=== PATIENT | female | born 1940 | race African-American/Black ===

== ENCOUNTER 2021-07-12 13:20 | Observation (INO) | payer MEDICARE, MEDICAID ==
[2021-07-12 14:39] LABS: #Eosinphils 0.3 10x3/uL (0.0-0.5); #Neutrophils 7.3 10x3/uL (1.5-8.4); %Basophils 0.3 % (0.0-2.0); %Eosinophils 2.9 % (0.0-6.0); %Lymphocytes 8.4 % (18.0-47.0); %Monocytes 10.7 % (0.0-10.0); %Neutrophils 77.1 % (40.0-75.0); Mean Corpuscular HGB CONC 33.2 g/dL (32.0-36.0); Mean Corpuscular Hemoglobin 32.1 pg (27.0-33.0); Mean Corpuscular Volume 96.5 fl (81.6-98.3); Mean Platelet Volume 10.7 fl (7.4-10.4); Platelet Count 236 10x3/uL (150-450); RBC Distribution Width 13.7 % (11.5-14.5); Red Blood Cell (RBC) Count 3.12 10x6/uL (3.90-5.03); White Blood Cell (WBC) Count 9.4 10x3/uL (3.5-10.5)
[2021-07-12 15:14] LABS: SARS-CoV-2 NAA Rapid Test Not Detected (NotDetected)
[2021-07-12 15:40] LABS: ALT (SGPT) 7 U/L (8-55); AST (SGOT) 16 U/L (5-34); Albumin 3.6 g/dL (3.4-4.8); Alkaline Phosphatase 147 U/L (40-110); Anion Gap 19 mmol/L (10-20); BUN (Urea Nitrogen) 40 mg/dL (9.8-20.1); Bilirubin, Total 0.4 mg/dL (0.2-1.2); Calc. Creatinine Clearance 0 mL/min (70-130); Calcium 9.2 mg/dL (7.8-10.44); Carbon Dioxide 25 mmol/L (23-31); Chloride 96 mmol/L (98-107); Globulin 3.1 g/dL (2.4-3.5); Glucose 110 mg/dL (83-110); Potassium 4.5 mmol/L (3.5-5.1); Protein, Total 6.7 g/dL (5.8-8.1); Sodium 135 mmol/L (136-145)
[2021-07-12 15:58] LABS: CKMB 1.4 ng/mL (0-6.6)
[2021-07-12 17:57] LABS: Troponin I 0.048 ng/mL (< 0.028)
[2021-07-12] MEDS ORDERED: Nitroglycerin 0.4 MG TAB (25 Tab Bottle) SL PRN (19:38)
[2021-07-12] MEDS ORDERED: Aspirin 325 MG TAB PO SCH (19:45)
[2021-07-12 21:04] LABS: Troponin I 0.051 ng/mL (< 0.028)
[2021-07-12 23:40] VITALS: BMI 22.3
[2021-07-12] MEDS: Heparin 5,000 UNITS/ML VIAL SC SCH (23:53)
[2021-07-13] MEDS ORDERED: Acetaminophen 500 MG TAB PO SCH (02:00)
[2021-07-13] MEDS ORDERED: FLU VACC QS2021-22(65YR UP)/PF 240 MCG/0.7 ML SYRINGE IM ONE (02:15)
[2021-07-13 04:58] LABS: #Eosinphils 0.3 10x3/uL (0.0-0.5); #Neutrophils 6.3 10x3/uL (1.5-8.4); %Basophils 0.4 % (0.0-2.0); %Eosinophils 3.7 % (0.0-6.0); %Lymphocytes 8.1 % (18.0-47.0); %Monocytes 11.8 % (0.0-10.0); %Neutrophils 75.6 % (40.0-75.0); Mean Corpuscular HGB CONC 32.8 g/dL (32.0-36.0); Mean Corpuscular Hemoglobin 31.7 pg (27.0-33.0); Mean Corpuscular Volume 96.5 fl (81.6-98.3); Mean Platelet Volume 9.1 fl (7.4-10.4); Platelet Count 219 10x3/uL (150-450); RBC Distribution Width 13.7 % (11.5-14.5); Red Blood Cell (RBC) Count 2.84 10x6/uL (3.90-5.03); White Blood Cell (WBC) Count 8.4 10x3/uL (3.5-10.5)
[2021-07-13 05:10] LABS: Anion Gap 13 mmol/L (10-20); BUN (Urea Nitrogen) 19 mg/dL (9.8-20.1); Calc. Creatinine Clearance 9 mL/min (70-130); Calcium 9.2 mg/dL (7.8-10.44); Carbon Dioxide 29 mmol/L (23-31); Chloride 100 mmol/L (98-107); Glucose 87 mg/dL (83-110); Phosphorus 3.5 mg/dL (2.3-4.7); Potassium 3.9 mmol/L (3.5-5.1); Sodium 138 mmol/L (136-145)
[2021-07-13] MEDS ORDERED: Acetaminophen 325 MG TAB PO PRN (08:30)
[2021-07-13] MEDS ORDERED: traMADol HCl 50 MG TAB PO PRN (08:31)
[2021-07-13] MEDS ORDERED: Levothyroxine Sodium 125 MCG TAB PO SCH (08:45)
[2021-07-13] MEDS ORDERED: cloNIDine 0.1 MG TAB PO SCH (09:00)
[2021-07-13] MEDS ORDERED: NIFEdipine XL 60 MG TAB PO SCH (09:00)
[2021-07-13] MEDS ORDERED: Aspirin Chewable 81 MG TAB PO SCH (09:00)
[2021-07-13] MEDS ORDERED: hydrALAZINE 25 MG TAB PO SCH (09:00)
[2021-07-13] MEDS ORDERED: Minoxidil 2.5 MG TAB PO SCH (09:00)
[2021-07-13] MEDS ORDERED: Lisinopril 20 MG TAB PO SCH (09:00)
[2021-07-13] MEDS ORDERED: traZODone HCl 50 MG TAB PO SCH (09:00)
[2021-07-13] MEDS: Heparin 5,000 UNITS/ML VIAL SC SCH (10:09)
[2021-07-13] MEDS ORDERED: Heparin 10,000 UNITS/ 10 ML VIAL FS SCH (10:45)
[2021-07-13] MEDS ORDERED: EPOETIN ALFA-EPBX (ESRD) 3,000 UNIT/ML VIAL IVP SCH (10:45)
[2021-07-13 12:26] VITALS: BP 155/66; TEMP 98.3
[2021-07-13] MEDS ORDERED: Atorvastatin Calcium 10 MG TAB PO SCH (21:00)
[2021-07-14] MEDS ORDERED: Levothyroxine Sodium 125 MCG TAB PO SCH (06:00)
== END 2021-07-13 16:27 | disposition home or self-care (01) ==
LOC: CSHERS 13:20 → CSHTELE 13:21
PROVIDERS: ADMIT Family Medicine; ATTEND Internal Medicine
DX: R07.89 Other chest pain (principal); R06.02 Shortness of breath; E87.70 Fluid overload, unspecified; E11.22 Type 2 diabetes mellitus with diabetic chronic kidney disease; I12.0 Hypertensive chronic kidney disease with stage 5 chronic kidney disease or end stage renal disease; N18.6 End stage renal disease; I51.89 Other ill-defined heart diseases; I25.10 Atherosclerotic heart disease of native coronary artery without angina pectoris; E78.5 Hyperlipidemia, unspecified; Z86.73 Personal history of transient ischemic attack (TIA), and cerebral infarction without residual deficits; Z79.899 Other long term (current) drug therapy; E03.9 Hypothyroidism, unspecified; Z20.822 Contact with and (suspected) exposure to COVID-19
CPT/HCPCS: 0241U; 71045; 80048; 80053; 82553; 82962; 83735; 84100; 84484 ×2; 85025 ×2; 93005 ×2; 93306; 94760; 99285; G0378 ×3; 36415; 36416; 90935; 93010; G0257; J1644

== ENCOUNTER 2021-09-10 03:45 | Inpatient (IN) | payer MEDICARE, MEDICAID ==
[2021-09-10] MEDS ORDERED: Labetalol HCl 100 MG/20 ML VIAL ONE (03:59)
[2021-09-10 04:19] LABS: #Basophils 0.1 10x3/uL (0.0-0.2); #Eosinphils 0.2 10x3/uL (0.0-0.5); #Monocytes 1.3 10x3/uL (0.0-1.1); #Neutrophils 9.4 10x3/uL (1.5-8.4); %Basophils 0.8 % (0.0-2.0); %Eosinophils 1.5 % (0.0-6.0); %Lymphocytes 7.8 % (18.0-47.0); %Monocytes 10.9 % (0.0-10.0); %Neutrophils 78.6 % (40.0-75.0); Mean Corpuscular HGB CONC 32.8 g/dL (32.0-36.0); Mean Corpuscular Hemoglobin 31.3 pg (27.0-33.0); Mean Corpuscular Volume 95.6 fl (81.6-98.3); Mean Platelet Volume 9.3 fl (7.4-10.4); Platelet Count 315 10x3/uL (150-450); RBC Distribution Width 13.3 % (11.5-14.5); Red Blood Cell (RBC) Count 3.83 10x6/uL (3.90-5.03)
[2021-09-10 04:39] LABS: ALT (SGPT) 10 U/L (8-55); AST (SGOT) 20 U/L (5-34); Albumin 4.3 g/dL (3.4-4.8); Alkaline Phosphatase 174 U/L (40-110); Anion Gap 18 mmol/L (10-20); BUN (Urea Nitrogen) 40 mg/dL (9.8-20.1); Bilirubin, Total 0.6 mg/dL (0.2-1.2); Calc. Creatinine Clearance 0 mL/min (70-130); Calcium 10.5 mg/dL (7.8-10.44); Carbon Dioxide 28 mmol/L (23-31); Chloride 94 mmol/L (98-107); Globulin 3.6 g/dL (2.4-3.5); Glucose 99 mg/dL (83-110); Potassium 4.6 mmol/L (3.5-5.1); Protein, Total 7.9 g/dL (5.8-8.1); Sodium 135 mmol/L (136-145)
[2021-09-10 04:57] LABS: CKMB 1.7 ng/mL (0-6.6)
[2021-09-10] MEDS ORDERED: hydrALAZINE 20 MG/ML VIAL ONE (05:14)
[2021-09-10 08:33] LABS: Troponin I 0.233 ng/mL (< 0.028)
[2021-09-10] MEDS: Famotidine 20 MG TAB PO SCH (08:59)
[2021-09-10] MEDS: Acetaminophen 325 MG TAB PO PRN ×2 (08:59→14:46)
[2021-09-10] MEDS: Heparin 5,000 UNITS/ML VIAL SC SCH ×3 (09:00→20:46)
[2021-09-10] MEDS ORDERED: Albuterol Sulfate 2.5 mg/3 ml Neb NEB PRN (10:27)
[2021-09-10] MEDS ORDERED: Levothyroxine Sodium 125 MCG TAB PO SCH ×2 (10:30→15:00)
[2021-09-10] MEDS: Ipratropium Bromide 2.5 ml Neb NEB SCH ×2 (12:29→18:45)
[2021-09-10] MEDS: Sevelamer Carbonate 800 MG TAB PO SCH ×2 (14:46→16:30)
[2021-09-10] MEDS: hydrALAZINE 25 MG TAB PO SCH ×3 (14:46→20:45)
[2021-09-10] MEDS ORDERED: HYDROcodone/Acetaminophen 10/325 mg Tablet PO SCH (16:30)
[2021-09-10] MEDS: Carvedilol 25 MG TAB PO SCH (16:30)
[2021-09-10 16:49] LABS: SARS-CoV-2 PCR by NAA Not Detected (NotDetected)
[2021-09-10] MEDS ORDERED: Heparin 10,000 UNITS/ 10 ML VIAL SLOW IVP PRN (17:07)
[2021-09-10] MEDS: Lisinopril 20 MG TAB PO SCH (20:44)
[2021-09-10] MEDS: NIFEdipine XL 60 MG TAB PO SCH (20:44)
[2021-09-10] MEDS: Atorvastatin Calcium 10 MG TAB PO SCH (20:45)
[2021-09-10] MEDS: cloNIDine 0.1 MG TAB PO SCH (20:45)
[2021-09-10] MEDS ORDERED: Simethicone Chewable 80 MG TAB PO SCH (21:00)
[2021-09-11] MEDS ORDERED: HYDROcodone/Acetaminophen 5/325 mg Tablet PO SCH (00:30)
[2021-09-11] MEDS: cloNIDine 0.1 MG TAB PO SCH ×3 (00:32→22:21)
[2021-09-11] MEDS: Ipratropium Bromide 2.5 ml Neb NEB SCH ×4 (01:35→19:40)
[2021-09-11 03:38] LABS: #Basophils 0.1 10x3/uL (0.0-0.2); #Eosinphils 0.2 10x3/uL (0.0-0.5); #Monocytes 1.5 10x3/uL (0.0-1.1); #Neutrophils 7.6 10x3/uL (1.5-8.4); %Basophils 0.6 % (0.0-2.0); %Eosinophils 1.8 % (0.0-6.0); %Lymphocytes 9.5 % (18.0-47.0); %Monocytes 14.8 % (0.0-10.0); %Neutrophils 72.9 % (40.0-75.0); Hemoglobin 10.8 g/dL (12.0-15.5); Mean Corpuscular HGB CONC 33.4 g/dL (32.0-36.0); Mean Corpuscular Hemoglobin 31.7 pg (27.0-33.0); Mean Corpuscular Volume 94.7 fl (81.6-98.3); Mean Platelet Volume 9.4 fl (7.4-10.4); Platelet Count 305 10x3/uL (150-450); RBC Distribution Width 13.3 % (11.5-14.5); Red Blood Cell (RBC) Count 3.41 10x6/uL (3.90-5.03); White Blood Cell (WBC) Count 10.4 10x3/uL (3.5-10.5)
[2021-09-11 03:51] LABS: Anion Gap 18 mmol/L (10-20); BUN (Urea Nitrogen) 28 mg/dL (9.8-20.1); Calc. Creatinine Clearance 8 mL/min (70-130); Calcium 9.8 mg/dL (7.8-10.44); Carbon Dioxide 27 mmol/L (23-31); Chloride 92 mmol/L (98-107); Glucose 117 mg/dL (83-110); Potassium 4.2 mmol/L (3.5-5.1); Sodium 133 mmol/L (136-145)
[2021-09-11] MEDS: Levothyroxine Sodium 125 MCG TAB PO SCH (06:15)
[2021-09-11] MEDS: Famotidine 20 MG TAB PO SCH (08:28)
[2021-09-11] MEDS: Heparin 5,000 UNITS/ML VIAL SC SCH ×3 (08:28→22:22)
[2021-09-11] MEDS: Carvedilol 25 MG TAB PO SCH ×2 (08:28→15:57)
[2021-09-11] MEDS: Lisinopril 20 MG TAB PO SCH ×2 (08:28→22:21)
[2021-09-11] MEDS: hydrALAZINE 25 MG TAB PO SCH ×4 (08:28→22:20)
[2021-09-11] MEDS: NIFEdipine XL 60 MG TAB PO SCH ×2 (08:28→22:20)
[2021-09-11] MEDS: Sevelamer Carbonate 800 MG TAB PO SCH ×3 (08:29→15:58)
[2021-09-11] MEDS: Minoxidil 2.5 MG TAB PO SCH (08:29)
[2021-09-11 09:18] VITALS: BMI 20.6
[2021-09-11] MEDS: Acetaminophen 325 MG TAB PO PRN (15:57)
[2021-09-11] MEDS: Atorvastatin Calcium 10 MG TAB PO SCH (22:21)
[2021-09-12] MEDS: Ipratropium Bromide 2.5 ml Neb NEB SCH ×3 (01:30→15:00)
[2021-09-12 04:18] LABS: Anion Gap 18 mmol/L (10-20); BUN (Urea Nitrogen) 46 mg/dL (9.8-20.1); Calc. Creatinine Clearance 6 mL/min (70-130); Calcium 9.8 mg/dL (7.8-10.44); Carbon Dioxide 27 mmol/L (23-31); Chloride 92 mmol/L (98-107); Glucose 102 mg/dL (83-110); Potassium 4.5 mmol/L (3.5-5.1); Sodium 132 mmol/L (136-145)
[2021-09-12 04:53] LABS: #Basophils 0.1 10x3/uL (0.0-0.2); #Eosinphils 0.2 10x3/uL (0.0-0.5); #Monocytes 1.3 10x3/uL (0.0-1.1); #Neutrophils 6.6 10x3/uL (1.5-8.4); %Basophils 0.8 % (0.0-2.0); %Eosinophils 2.4 % (0.0-6.0); %Lymphocytes 13.7 % (18.0-47.0); %Monocytes 13.7 % (0.0-10.0); %Neutrophils 68.9 % (40.0-75.0); Hemoglobin 9.5 g/dL (12.0-15.5); Mean Corpuscular HGB CONC 32.8 g/dL (32.0-36.0); Mean Corpuscular Hemoglobin 31.7 pg (27.0-33.0); Mean Corpuscular Volume 96.7 fl (81.6-98.3); Mean Platelet Volume 9.8 fl (7.4-10.4); Platelet Count 290 10x3/uL (150-450); RBC Distribution Width 13.3 % (11.5-14.5); White Blood Cell (WBC) Count 9.6 10x3/uL (3.5-10.5)
[2021-09-12] MEDS: cloNIDine 0.1 MG TAB PO SCH ×2 (08:19→09:01)
[2021-09-12] MEDS: Minoxidil 2.5 MG TAB PO SCH (09:01)
[2021-09-12] MEDS: Carvedilol 25 MG TAB PO SCH (09:01)
[2021-09-12] MEDS: Heparin 5,000 UNITS/ML VIAL SC SCH ×2 (09:01→13:40)
[2021-09-12] MEDS: NIFEdipine XL 60 MG TAB PO SCH (09:01)
[2021-09-12] MEDS: Lisinopril 20 MG TAB PO SCH (09:02)
[2021-09-12] MEDS: Levothyroxine Sodium 125 MCG TAB PO SCH (09:02)
[2021-09-12] MEDS: Sevelamer Carbonate 800 MG TAB PO SCH ×2 (09:02→13:40)
[2021-09-12] MEDS: Famotidine 20 MG TAB PO SCH (09:02)
[2021-09-12] MEDS: hydrALAZINE 25 MG TAB PO SCH ×2 (09:02→13:39)
[2021-09-12 16:06] VITALS: BP 150/67; TEMP 97.1
== END 2021-09-12 17:43 | disposition home or self-care (01) | DRG 291 ==
LOC: CSHERS 03:45 → CSHTELE 06:59
PROVIDERS: ADMIT Internal Medicine; ATTEND Hospitalist
PROC: 5A1D70Z Performance of Urinary Filtration, Intermittent, Less than 6 Hours Per Day (ICD-10-PCS; principal; 2021-09-10)
PROC: 5A1D70Z Performance of Urinary Filtration, Intermittent, Less than 6 Hours Per Day (ICD-10-PCS; 2021-09-12)
DX: I13.2 Hypertensive heart and chronic kidney disease with heart failure and with stage 5 chronic kidney disease, or end stage renal disease (principal); N18.6 End stage renal disease; J96.01 Acute respiratory failure with hypoxia; I50.33 Acute on chronic diastolic (congestive) heart failure; I16.1 Hypertensive emergency; I16.0 Hypertensive urgency; E11.22 Type 2 diabetes mellitus with diabetic chronic kidney disease; E03.9 Hypothyroidism, unspecified; I25.10 Atherosclerotic heart disease of native coronary artery without angina pectoris; J44.9 Chronic obstructive pulmonary disease, unspecified; D63.1 Anemia in chronic kidney disease; F41.9 Anxiety disorder, unspecified; F32.A Depression, unspecified; Z20.822 Contact with and (suspected) exposure to COVID-19; Z86.73 Personal history of transient ischemic attack (TIA), and cerebral infarction without residual deficits; Z90.49 Acquired absence of other specified parts of digestive tract; Z98.890 Other specified postprocedural states; Z87.891 Personal history of nicotine dependence; Z88.1 Allergy status to other antibiotic agents; Z88.8 Allergy status to other drugs, medicaments and biological substances; Z86.16 Personal history of COVID-19; Z88.2 Allergy status to sulfonamides; Z79.899 Other long term (current) drug therapy; Z99.2 Dependence on renal dialysis; Z79.51 Long term (current) use of inhaled steroids; Z90.710 Acquired absence of both cervix and uterus; Z91.15 Patient's noncompliance with renal dialysis
CPT/HCPCS: 36415; 36416; 71045; 80048; 80053; 82553; 83880; 84484; 85025; 90935; 93005; 94760; 96374; 96375; G0257; J0360; J1644; U0003; U0005

== ENCOUNTER 2021-09-17 11:06 | Emergency (ER) | payer MEDICARE, MEDICAID ==
[2021-09-17] MEDS ORDERED: HYDROcodone/Acetaminophen 10/325 mg Tablet ONE (11:51)
== END 2021-09-17 13:58 | disposition home or self-care (01) ==
LOC: CSHERS 11:06
DX: T82.848A Pain due to vascular prosthetic devices, implants and grafts, initial encounter (principal); I12.0 Hypertensive chronic kidney disease with stage 5 chronic kidney disease or end stage renal disease; E11.22 Type 2 diabetes mellitus with diabetic chronic kidney disease; N18.6 End stage renal disease; I25.10 Atherosclerotic heart disease of native coronary artery without angina pectoris; Z86.73 Personal history of transient ischemic attack (TIA), and cerebral infarction without residual deficits; Z99.2 Dependence on renal dialysis; Z87.891 Personal history of nicotine dependence
CPT/HCPCS: 93931

== ENCOUNTER 2021-10-27 06:03 | Inpatient (IN) | payer MEDICARE, MEDICAID ==
[2021-10-27] MEDS ORDERED: Dexmedetomidine In 0.9 % NaCl 400 MCG in Premix Bag 1 BAG IVPB SCH (06:45)
[2021-10-27 06:52] LABS: Actual Bicarbonate (HCO3a) 21.9 mEq/L (22-28); Base Excess (BEa) -2.9 mEq/L (-2.0 to +3.0); CO2 Tension 38.1 mmHg (35.0-45.0); Calcium, Ionized (arterial) 1.14 mmol/L (1.12-1.30); Carboxyhemoglobin (COHb) 2.1 gm% (0.0-3.0); Hemoglobin (Hb) 10.9 g/dL (12.0-16.0); Potassium - ABG Lab 5.5 mmol/L (3.70-5.30); Puncture Site RRA; pH, Arterial 7.38 (7.35-7.45)
[2021-10-27 06:53] LABS: ALV-art Gradient 201.175 mmHg (0-20)
[2021-10-27 06:53] LABS: #Basophils 0.1 10x3/uL (0.0-0.2); #Eosinphils 0.4 10x3/uL (0.0-0.5); #Neutrophils 11.2 10x3/uL (1.5-8.4); %Basophils 0.7 % (0.0-2.0); %Eosinophils 2.9 % (0.0-6.0); %Monocytes 6.9 % (0.0-10.0); %Neutrophils 78.5 % (40.0-75.0); Mean Corpuscular HGB CONC 33.4 g/dL (32.0-36.0); Mean Corpuscular Volume 95.6 fl (81.6-98.3); Mean Platelet Volume 9.6 fl (7.4-10.4); Platelet Count 262 10x3/uL (150-450); RBC Distribution Width 12.2 % (11.5-14.5); Red Blood Cell (RBC) Count 3.44 10x6/uL (3.90-5.03); White Blood Cell (WBC) Count 14.3 10x3/uL (3.5-10.5)
[2021-10-27 06:57] LABS: PTT 25.6 sec (22.0-33.0); Prothrombin Time 11.1 sec (9.5-12.1)
[2021-10-27 07:23] LABS: CKMB 2.2 ng/mL (0-6.6)
[2021-10-27 07:27] LABS: ALT (SGPT) 32 U/L (8-55); AST (SGOT) 55 U/L (5-34); Albumin 3.6 g/dL (3.4-4.8); Alkaline Phosphatase 103 U/L (40-110); Anion Gap 23 mmol/L (10-20); BUN (Urea Nitrogen) 45 mg/dL (9.8-20.1); Bilirubin, Total 0.5 mg/dL (0.2-1.2); Calc. Creatinine Clearance 0 mL/min (70-130); Calcium 9.6 mg/dL (7.8-10.44); Carbon Dioxide 21 mmol/L (23-31); Chloride 99 mmol/L (98-107); Globulin 3.2 g/dL (2.4-3.5); Glucose 166 mg/dL (83-110); Magnesium 2.4 mg/dL (1.6-2.6); Potassium 6.2 mmol/L (3.5-5.1); Protein, Total 6.8 g/dL (5.8-8.1); Sodium 137 mmol/L (136-145)
[2021-10-27 07:49] LABS: SARS-CoV-2 NAA Rapid Test Not Detected (NotDetected)
[2021-10-27] MEDS ORDERED: Calcium Gluc 4.6 MEQ/10 ML (100 MG/ML) ONE (08:22)
[2021-10-27] MEDS ORDERED: Sodium Bicarb 50 MEQ/50 ML Abboject 8.4% SYRINGE ONE (08:23)
[2021-10-27] MEDS: Lorazepam 2 MG/ML VIAL SLOW IVP PRN ×3 (08:35→11:50)
[2021-10-27] MEDS ORDERED: Lorazepam 2 MG/ML VIAL ONE (08:40)
[2021-10-27] MEDS ORDERED: Electrolyte Replacement Protocol 1 EACH IVPB PRN (09:40)
[2021-10-27] MEDS ORDERED: Ventilator Sedation Protocol 1 EACH FS SCH (09:45)
[2021-10-27] MEDS ORDERED: Acetaminophen 650 MG/20.3 ML UDCUP PER TUBE PRN (09:55)
[2021-10-27] MEDS ORDERED: Propofol BOLUS 1,000 MG/100 ML VIAL IV PRN (10:00)
[2021-10-27] MEDS ORDERED: Fentanyl BOLUS 250 ML IVPB PRN (10:00)
[2021-10-27] MEDS ORDERED: DISCONTINUE PREVIOUS NARCOTIC PAIN MEDICATIONS AND BENZODIAZEPINES FS SCH (10:00)
[2021-10-27] MEDS ORDERED: Heparin 10,000 UNITS/ 10 ML VIAL SLOW IVP PRN (11:08)
[2021-10-27] MEDS ORDERED: Albumin 25% 25 GM/100 ML BOT IVPB SCH (11:15)
[2021-10-27] MEDS ORDERED: Piperacillin/Tazobactam 3.375 GM in Sodium Chloride 0.9% 100 ML IVPB SCH ×2 (12:00→16:00)
[2021-10-27] MEDS: Propofol 1,000 MG/100 ML VIAL IV PRN (12:27)
[2021-10-27 12:30] LABS: Glucose 121 mg/dL (83-110)
[2021-10-27 12:31] LABS: Lactic Acid 0.9 mmol/L (0.5-2.2)
[2021-10-27] MEDS: fentaNYL Citrate-0.9 % NaCl/PF 100 ML IVPB SCH (13:48)
[2021-10-27 16:06] LABS: Hemoglobin 11.2 g/dL (12.0-15.5); Mean Corpuscular HGB CONC 34.6 g/dL (32.0-36.0); Mean Corpuscular Hemoglobin 31.7 pg (27.0-33.0); Mean Corpuscular Volume 91.8 fl (81.6-98.3); Mean Platelet Volume 9.8 fl (7.4-10.4); Platelet Count 234 10x3/uL (150-450); RBC Distribution Width 12.3 % (11.5-14.5); Red Blood Cell (RBC) Count 3.53 10x6/uL (3.90-5.03); White Blood Cell (WBC) Count 27.5 10x3/uL (3.5-10.5)
[2021-10-27 16:07] LABS: PTT 28.6 sec (22.0-33.0); Prothrombin Time 11.4 sec (9.5-12.1)
[2021-10-27 16:10] LABS: Calcium 10.1 mg/dL (7.8-10.44)
[2021-10-27 16:11] LABS: CK (CPK) 444 U/L (29-168); Phosphorus 2.9 mg/dL (2.3-4.7)
[2021-10-27 16:19] LABS: Lactic Acid 1.1 mmol/L (0.5-2.2)
[2021-10-27 16:27] LABS: CKMB 10.6 ng/mL (0-6.6); Manual Diff?? YES
[2021-10-27 16:29] LABS: Anion Gap 16 mmol/L (10-20); BUN (Urea Nitrogen) 18 mg/dL (9.8-20.1); Calc. Creatinine Clearance 9 mL/min (70-130); Calcium 10.1 mg/dL (7.8-10.44); Carbon Dioxide 29 mmol/L (23-31); Chloride 97 mmol/L (98-107); Glucose 136 mg/dL (83-110); Potassium 3.9 mmol/L (3.5-5.1); Sodium 138 mmol/L (136-145)
[2021-10-27 16:41] LABS: Glucose 134 mg/dL (83-110)
[2021-10-27 17:28] LABS: Band 2 % (5-11); Lymphocytes 2 % (21-51); MDiff Complete? YES; Monocytes 4 % (0-10); Neutrophil 92 % (42-75)
[2021-10-27 17:29] LABS: Platelet Morphology Comment Appears Adequate; RBC Morphology Normal
[2021-10-27] MEDS: hydrALAZINE 20 MG/ML VIAL SLOW IVP PRN (20:05)
[2021-10-27] MEDS ORDERED: Famotidine/PF 20 mg/2ml Vial SLOW IVP SCH (21:00)
[2021-10-27 21:20] LABS: Hemoglobin 10.6 g/dL (12.0-15.5); MDiff Complete? YES; Manual Diff?? YES; Mean Corpuscular HGB CONC 34.9 g/dL (32.0-36.0); Mean Corpuscular Hemoglobin 31.9 pg (27.0-33.0); Mean Corpuscular Volume 91.6 fl (81.6-98.3); Mean Platelet Volume 9.4 fl (7.4-10.4); Platelet Count 216 10x3/uL (150-450); RBC Distribution Width 12.1 % (11.5-14.5); Red Blood Cell (RBC) Count 3.32 10x6/uL (3.90-5.03)
[2021-10-27 21:23] LABS: Glucose 124 mg/dL (83-110)
[2021-10-27 21:31] LABS: Anion Gap 14 mmol/L (10-20); BUN (Urea Nitrogen) 24 mg/dL (9.8-20.1); Calc. Creatinine Clearance 7 mL/min (70-130); Calcium 9.6 mg/dL (7.8-10.44); Carbon Dioxide 30 mmol/L (23-31); Chloride 98 mmol/L (98-107); Glucose 123 mg/dL (83-110); Potassium 4.3 mmol/L (3.5-5.1); Sodium 138 mmol/L (136-145)
[2021-10-27 21:43] LABS: CK (CPK) 446 U/L (29-168); Magnesium 2.1 mg/dL (1.6-2.6); Phosphorus 3.9 mg/dL (2.3-4.7)
[2021-10-27 21:47] LABS: Band 18 % (5-11); Monocytes 4 % (0-10); Neutrophil 77 % (42-75); Platelet Morphology Comment Appears Adequate; Reactive Lymphocytes 1 % (0-10)
[2021-10-27 21:51] LABS: CKMB 11.8 ng/mL (0-6.6)
[2021-10-27] MEDS: Heparin 5,000 UNITS/ML VIAL SC SCH (21:58)
[2021-10-27] MEDS: Vecuronium 10 MG VIAL IVP PRN (22:46)
[2021-10-27] MEDS ORDERED: Sterile Water 10 ML ONE (22:48)
[2021-10-28] MEDS: Vecuronium 10 MG VIAL IVP PRN ×6 (01:34→17:53)
[2021-10-28] MEDS: Propofol 1,000 MG/100 ML VIAL IV PRN (01:34)
[2021-10-28] MEDS ORDERED: Sterile Water 10 ML ONE ×3 (01:37→05:51)
[2021-10-28 01:39] LABS: Glucose 128 mg/dL (83-110)
[2021-10-28 01:42] LABS: INR-International Normal Ratio 1.1; PTT 36.9 sec (22.0-33.0); Prothrombin Time 11.8 sec (9.5-12.1)
[2021-10-28] MEDS: Labetalol HCl 100 MG/20 ML VIAL SLOW IVP PRN ×3 (03:20→14:09)
[2021-10-28 04:25] LABS: PTT 34.4 sec (22.0-33.0); Prothrombin Time 11.5 sec (9.5-12.1)
[2021-10-28 04:39] LABS: Calcium 9.8 mg/dL (7.8-10.44); Chloride 100 mmol/L (98-107); Phosphorus 3.9 mg/dL (2.3-4.7); Potassium 3.9 mmol/L (3.5-5.1); Sodium 142 mmol/L (136-145)
[2021-10-28 04:55] LABS: Band 4 % (5-11); Hemoglobin 10.9 g/dL (12.0-15.5); Lymphocytes 2 % (21-51); MDiff Complete? YES; Mean Corpuscular HGB CONC 35.4 g/dL (32.0-36.0); Mean Corpuscular Hemoglobin 31.8 pg (27.0-33.0); Mean Corpuscular Volume 89.8 fl (81.6-98.3); Mean Platelet Volume 10.4 fl (7.4-10.4); Monocytes 5 % (0-10); Neutrophil 89 % (42-75); Platelet Count 216 10x3/uL (150-450); Platelet Morphology Comment Appears Adequate; RBC Distribution Width 12.1 % (11.5-14.5); Red Blood Cell (RBC) Count 3.43 10x6/uL (3.90-5.03); White Blood Cell (WBC) Count 23.4 10x3/uL (3.5-10.5)
[2021-10-28 05:10] LABS: ALT (SGPT) 26 U/L (8-55); AST (SGOT) 44 U/L (5-34); Albumin 3.7 g/dL (3.4-4.8); Alkaline Phosphatase 85 U/L (40-110); Anion Gap 20 mmol/L (10-20); BUN (Urea Nitrogen) 27 mg/dL (9.8-20.1); Bilirubin, Total 0.6 mg/dL (0.2-1.2); Calc. Creatinine Clearance 7 mL/min (70-130); Carbon Dioxide 25 mmol/L (23-31); Globulin 3.1 g/dL (2.4-3.5); Glucose 128 mg/dL (83-110); Protein, Total 6.8 g/dL (5.8-8.1)
[2021-10-28 05:38] LABS: CKMB 12.8 ng/mL (0-6.6)
[2021-10-28] MEDS: Famotidine/PF 20 mg/2ml Vial SLOW IVP SCH (08:10)
[2021-10-28] MEDS: Heparin 5,000 UNITS/ML VIAL SC SCH ×2 (08:10→21:07)
[2021-10-28 08:33] LABS: Actual Bicarbonate (HCO3a) 27.3 mEq/L (22-28); Base Excess (BEa) 5.3 mEq/L (-2.0 to +3.0); CO2 Tension 31.2 mmHg (35.0-45.0); Calcium, Ionized (arterial) 1.17 mmol/L (1.12-1.30); Carboxyhemoglobin (COHb) 0.8 gm% (0.0-3.0); Hemoglobin (Hb) 11.1 g/dL (12.0-16.0); O2 Tension (PaO2), arterial 120.1 mmHg (> 70.0); Potassium - ABG Lab 3.7 mmol/L (3.70-5.30); Puncture Site LRA; pH, Arterial 7.56 (7.35-7.45)
[2021-10-28 10:06] LABS: Glucose 137 mg/dL (83-110)
[2021-10-28 10:28] LABS: PTT 39.2 sec (22.0-33.0); Prothrombin Time 11.4 sec (9.5-12.1)
[2021-10-28 10:37] LABS: CKMB 11.2 ng/mL (0-6.6)
[2021-10-28 11:11] LABS: #Monocytes 1.4 10x3/uL (0.0-1.1); #Neutrophils 22.4 10x3/uL (1.5-8.4); %Basophils 0.2 % (0.0-2.0); %Lymphocytes 2.3 % (18.0-47.0); %Monocytes 5.7 % (0.0-10.0); %Neutrophils 91.2 % (40.0-75.0); Hemoglobin 10.8 g/dL (12.0-15.5); Mean Corpuscular HGB CONC 35.2 g/dL (32.0-36.0); Mean Corpuscular Hemoglobin 32.4 pg (27.0-33.0); Mean Corpuscular Volume 92.2 fl (81.6-98.3); Mean Platelet Volume 10.3 fl (7.4-10.4); Platelet Count 271 10x3/uL (150-450); RBC Distribution Width 12.2 % (11.5-14.5); Red Blood Cell (RBC) Count 3.33 10x6/uL (3.90-5.03); White Blood Cell (WBC) Count 24.6 10x3/uL (3.5-10.5)
[2021-10-28 11:20] LABS: Anion Gap 21 mmol/L (10-20); BUN (Urea Nitrogen) 30 mg/dL (9.8-20.1); Calc. Creatinine Clearance 6 mL/min (70-130); Calcium 10.4 mg/dL (7.8-10.44); Carbon Dioxide 25 mmol/L (23-31); Chloride 99 mmol/L (98-107); Glucose 136 mg/dL (83-110); Magnesium 2.2 mg/dL (1.6-2.6); Potassium 4.1 mmol/L (3.5-5.1); Sodium 141 mmol/L (136-145)
[2021-10-28 14:22] LABS: Anion Gap 18 mmol/L (10-20); BUN (Urea Nitrogen) 32 mg/dL (9.8-20.1); Calc. Creatinine Clearance 6 mL/min (70-130); Calcium 9.7 mg/dL (7.8-10.44); Carbon Dioxide 26 mmol/L (23-31); Chloride 99 mmol/L (98-107); Glucose 128 mg/dL (83-110); Potassium 4.2 mmol/L (3.5-5.1); Sodium 139 mmol/L (136-145)
[2021-10-28 18:35] LABS: Anion Gap 19 mmol/L (10-20); BUN (Urea Nitrogen) 33 mg/dL (9.8-20.1); Calc. Creatinine Clearance 6 mL/min (70-130); Calcium 10.2 mg/dL (7.8-10.44); Carbon Dioxide 26 mmol/L (23-31); Chloride 98 mmol/L (98-107); Glucose 116 mg/dL (83-110); Potassium 4.3 mmol/L (3.5-5.1); Sodium 139 mmol/L (136-145)
[2021-10-28] MEDS: Piperacillin/Tazobactam 3.375 GM in Sodium Chloride 0.9% 100 ML IVPB SCH (20:45)
[2021-10-28 22:52] LABS: Anion Gap 19 mmol/L (10-20); BUN (Urea Nitrogen) 35 mg/dL (9.8-20.1); Calc. Creatinine Clearance 5 mL/min (70-130); Calcium 10.1 mg/dL (7.8-10.44); Carbon Dioxide 27 mmol/L (23-31); Chloride 98 mmol/L (98-107); Glucose 123 mg/dL (83-110); Potassium 4.2 mmol/L (3.5-5.1); Sodium 140 mmol/L (136-145)
[2021-10-29 03:50] LABS: Actual Bicarbonate (HCO3a) 27.5 mEq/L (22-28); Base Excess (BEa) 3.4 mEq/L (-2.0 to +3.0); CO2 Tension 39.4 mmHg (35.0-45.0); Calcium, Ionized (arterial) 1.15 mmol/L (1.12-1.30); Carboxyhemoglobin (COHb) 0.9 gm% (0.0-3.0); Critical Notified Whom: ZOVAN; Hemoglobin (Hb) 10.5 g/dL (12.0-16.0); O2 Tension (PaO2), arterial 56.7 mmHg (> 70.0); Potassium - ABG Lab 4.4 mmol/L (3.70-5.30); Puncture Site RRA; Temperature 36.4 C; pH, Arterial 7.46 (7.35-7.45)
[2021-10-29 04:44] LABS: Hemoglobin 9.2 g/dL (12.0-15.5); Mean Corpuscular HGB CONC 33.9 g/dL (32.0-36.0); Mean Corpuscular Hemoglobin 31.4 pg (27.0-33.0); Mean Corpuscular Volume 92.5 fl (81.6-98.3); Mean Platelet Volume 9.9 fl (7.4-10.4); Platelet Count 209 10x3/uL (150-450); RBC Distribution Width 12.6 % (11.5-14.5); Red Blood Cell (RBC) Count 2.93 10x6/uL (3.90-5.03); White Blood Cell (WBC) Count 21.4 10x3/uL (3.5-10.5)
[2021-10-29 04:49] LABS: MDiff Complete? YES
[2021-10-29 04:57] LABS: ALT (SGPT) 24 U/L (8-55); AST (SGOT) 39 U/L (5-34); Albumin 3.4 g/dL (3.4-4.8); Alkaline Phosphatase 81 U/L (40-110); Anion Gap 21 mmol/L (10-20); BUN (Urea Nitrogen) 40 mg/dL (9.8-20.1); Band 4 % (5-11); Bilirubin, Total 0.4 mg/dL (0.2-1.2); Calc. Creatinine Clearance 5 mL/min (70-130); Calcium 9.2 mg/dL (7.8-10.44); Carbon Dioxide 25 mmol/L (23-31); Chloride 99 mmol/L (98-107); Glucose 111 mg/dL (83-110); Lymphocytes 3 % (21-51); Monocytes 10 % (0-10); Neutrophil 82 % (42-75); Potassium 4.4 mmol/L (3.5-5.1); Protein, Total 6.4 g/dL (5.8-8.1); Sodium 141 mmol/L (136-145)
[2021-10-29 04:59] LABS: Platelet Morphology Comment Appears Adequate; RBC Morphology Normal
[2021-10-29] MEDS: fentaNYL Citrate-0.9 % NaCl/PF 100 ML IVPB SCH (05:34)
[2021-10-29] MEDS: Propofol 1,000 MG/100 ML VIAL IV PRN (05:34)
[2021-10-29] MEDS: Heparin 5,000 UNITS/ML VIAL SC SCH ×2 (07:55→21:35)
[2021-10-29] MEDS: Famotidine/PF 20 mg/2ml Vial SLOW IVP SCH (08:06)
[2021-10-29] MEDS: Piperacillin/Tazobactam 3.375 GM in Sodium Chloride 0.9% 100 ML IVPB SCH ×2 (12:40→20:34)
[2021-10-29] MEDS: hydrALAZINE 20 MG/ML VIAL SLOW IVP PRN (14:21)
[2021-10-29] MEDS: Labetalol HCl 100 MG/20 ML VIAL SLOW IVP PRN (15:40)
[2021-10-30 03:37] LABS: Actual Bicarbonate (HCO3a) 29.7 mEq/L (22-28); Base Excess (BEa) 6.4 mEq/L (-2.0 to +3.0); CO2 Tension 37.1 mmHg (35.0-45.0); Calcium, Ionized (arterial) 1.18 mmol/L (1.12-1.30); Carboxyhemoglobin (COHb) 0.9 gm% (0.0-3.0); Critical Notified Whom: ZOVAN; Hemoglobin (Hb) 9.1 g/dL (12.0-16.0); O2 Tension (PaO2), arterial 95.1 mmHg (> 70.0); Potassium - ABG Lab 3.8 mmol/L (3.70-5.30); Puncture Site RRA; pH, Arterial 7.52 (7.35-7.45)
[2021-10-30 03:42] LABS: ALV-art Gradient 108.075 mmHg (0-20)
[2021-10-30 04:20] LABS: Hemoglobin 8.5 g/dL (12.0-15.5); Mean Corpuscular HGB CONC 34.1 g/dL (32.0-36.0); Mean Corpuscular Hemoglobin 31.8 pg (27.0-33.0); Mean Corpuscular Volume 93.3 fl (81.6-98.3); Platelet Count 202 10x3/uL (150-450); RBC Distribution Width 12.9 % (11.5-14.5); Red Blood Cell (RBC) Count 2.67 10x6/uL (3.90-5.03); White Blood Cell (WBC) Count 18.1 10x3/uL (3.5-10.5)
[2021-10-30 04:38] LABS: ALT (SGPT) 26 U/L (8-55); AST (SGOT) 56 U/L (5-34); Albumin 3.4 g/dL (3.4-4.8); Alkaline Phosphatase 82 U/L (40-110); Anion Gap 18 mmol/L (10-20); BUN (Urea Nitrogen) 20 mg/dL (9.8-20.1); Bilirubin, Total 0.5 mg/dL (0.2-1.2); Calc. Creatinine Clearance 13 mL/min (70-130); Calcium 9.6 mg/dL (7.8-10.44); Carbon Dioxide 27 mmol/L (23-31); Chloride 98 mmol/L (98-107); Globulin 3.2 g/dL (2.4-3.5); Glucose 93 mg/dL (83-110); Potassium 3.8 mmol/L (3.5-5.1); Protein, Total 6.6 g/dL (5.8-8.1); Sodium 139 mmol/L (136-145)
[2021-10-30 06:57] LABS: Anisocytosis SLIGHT = 6-15 cells (100X) (0-5/hpf); Band 10 % (5-11); Eosinophils 2 % (0-10); Lymphocytes 4 % (21-51); Monocytes 9 % (0-10); Neutrophil 75 % (42-75)
[2021-10-30 06:58] LABS: Platelet Morphology Comment Appears Adequate; Schistocytes SLIGHT = 2-5 cells (100X) (0-1/hpf)
[2021-10-30] MEDS: Labetalol HCl 100 MG/20 ML VIAL SLOW IVP PRN ×2 (08:42→14:00)
[2021-10-30] MEDS: Heparin 5,000 UNITS/ML VIAL SC SCH ×2 (08:43→21:35)
[2021-10-30] MEDS: Piperacillin/Tazobactam 3.375 GM in Sodium Chloride 0.9% 100 ML IVPB SCH ×2 (08:43→20:35)
[2021-10-30] MEDS: Famotidine/PF 20 mg/2ml Vial SLOW IVP SCH (08:43)
[2021-10-30] MEDS ORDERED: FLU VACC QS2021-22(65YR UP)/PF 240 MCG/0.7 ML SYRINGE IM ONE (13:15)
[2021-10-30] MEDS: Lorazepam 2 MG/ML VIAL SLOW IVP PRN ×2 (14:23→21:36)
[2021-10-31] MEDS: Lorazepam 2 MG/ML VIAL SLOW IVP PRN ×2 (02:06→23:25)
[2021-10-31 04:23] LABS: #Eosinphils 0.1 10x3/uL (0.0-0.5); #Neutrophils 11.7 10x3/uL (1.5-8.4); %Basophils 0.3 % (0.0-2.0); %Eosinophils 0.5 % (0.0-6.0); %Lymphocytes 3.7 % (18.0-47.0); %Neutrophils 80.8 % (40.0-75.0); Hemoglobin 7.9 g/dL (12.0-15.5); Mean Corpuscular HGB CONC 34.1 g/dL (32.0-36.0); Mean Corpuscular Hemoglobin 31.7 pg (27.0-33.0); Mean Corpuscular Volume 93.2 fl (81.6-98.3); Mean Platelet Volume 9.9 fl (7.4-10.4); Platelet Count 179 10x3/uL (150-450); RBC Distribution Width 12.2 % (11.5-14.5); Red Blood Cell (RBC) Count 2.49 10x6/uL (3.90-5.03); White Blood Cell (WBC) Count 14.5 10x3/uL (3.5-10.5)
[2021-10-31] MEDS: Labetalol HCl 100 MG/20 ML VIAL SLOW IVP PRN ×3 (04:35→22:52)
[2021-10-31 05:04] LABS: ALT (SGPT) 22 U/L (8-55); AST (SGOT) 52 U/L (5-34); Alkaline Phosphatase 86 U/L (40-110); Anion Gap 16 mmol/L (10-20); BUN (Urea Nitrogen) 38 mg/dL (9.8-20.1); Bilirubin, Total 0.4 mg/dL (0.2-1.2); Calc. Creatinine Clearance 8 mL/min (70-130); Calcium 9.4 mg/dL (7.8-10.44); Carbon Dioxide 28 mmol/L (23-31); Chloride 100 mmol/L (98-107); Glucose 118 mg/dL (83-110); Potassium 3.8 mmol/L (3.5-5.1); Sodium 140 mmol/L (136-145)
[2021-10-31] MEDS: Heparin 5,000 UNITS/ML VIAL SC SCH ×2 (08:57→21:05)
[2021-10-31] MEDS: Famotidine/PF 20 mg/2ml Vial SLOW IVP SCH (08:57)
[2021-10-31] MEDS: Piperacillin/Tazobactam 3.375 GM in Sodium Chloride 0.9% 100 ML IVPB SCH ×2 (08:57→21:05)
[2021-10-31] MEDS: hydrALAZINE 20 MG/ML VIAL SLOW IVP PRN (09:52)
[2021-10-31] MEDS ORDERED: NIFEdipine XL 60 MG TAB PO SCH (12:00)
[2021-10-31] MEDS ORDERED: Lisinopril 20 MG TAB PO SCH ×2 (12:00→21:00)
[2021-10-31] MEDS ORDERED: Carvedilol 25 MG TAB PO SCH (12:00)
[2021-10-31] MEDS ORDERED: Norepinephrine 8 MG/0.9% NS 250 ML ONE (13:32)
[2021-10-31] MEDS ORDERED: Norepinephrine 8 MG/0.9% NS 250 ML IVPB SCH (14:15)
[2021-10-31] MEDS ORDERED: hydrALAZINE 25 MG TAB PO SCH (15:00)
[2021-10-31] MEDS: Insulin Regular 300 UNITS/3 ML VIAL SC PRN (16:13)
[2021-10-31] MEDS ORDERED: Sodium Chloride 0.9% 100 ML ONE (21:01)
[2021-11-01] MEDS: Lorazepam 2 MG/ML VIAL SLOW IVP PRN ×3 (02:37→06:07)
[2021-11-01] MEDS: Labetalol HCl 100 MG/20 ML VIAL SLOW IVP PRN ×3 (04:05→22:03)
[2021-11-01 04:27] LABS: Hemoglobin 8.9 g/dL (12.0-15.5); Mean Corpuscular HGB CONC 34.5 g/dL (32.0-36.0); Mean Corpuscular Hemoglobin 31.7 pg (27.0-33.0); Mean Corpuscular Volume 91.8 fl (81.6-98.3); Mean Platelet Volume 9.9 fl (7.4-10.4); Platelet Count 222 10x3/uL (150-450); RBC Distribution Width 12.2 % (11.5-14.5); Red Blood Cell (RBC) Count 2.81 10x6/uL (3.90-5.03); White Blood Cell (WBC) Count 14.8 10x3/uL (3.5-10.5)
[2021-11-01 04:29] LABS: ALT (SGPT) 23 U/L (8-55); AST (SGOT) 56 U/L (5-34); Albumin 3.3 g/dL (3.4-4.8); Alkaline Phosphatase 94 U/L (40-110); Anion Gap 17 mmol/L (10-20); BUN (Urea Nitrogen) 24 mg/dL (9.8-20.1); Bilirubin, Total 0.4 mg/dL (0.2-1.2); Calc. Creatinine Clearance 12 mL/min (70-130); Calcium 10.2 mg/dL (7.8-10.44); Carbon Dioxide 28 mmol/L (23-31); Chloride 99 mmol/L (98-107); Globulin 3.7 g/dL (2.4-3.5); Glucose 144 mg/dL (83-110); Potassium 3.8 mmol/L (3.5-5.1); Sodium 140 mmol/L (136-145)
[2021-11-01 06:05] LABS: MDiff Complete? YES
[2021-11-01 06:08] LABS: Band 2 % (5-11); Lymphocytes 5 % (21-51); Monocytes 11 % (0-10); Neutrophil 81 % (42-75); Reactive Lymphocytes 1 % (0-10)
[2021-11-01 06:09] LABS: Platelet Morphology Comment Appears Adequate; RBC Morphology Normal
[2021-11-01 07:18] LABS: Base Excess (BEa) 6.3 mEq/L (-2.0 to +3.0); CO2 Tension 39.6 mmHg (35.0-45.0); Calcium, Ionized (arterial) 1.24 mmol/L (1.12-1.30); Hemoglobin (Hb) 8.9 g/dL (12.0-16.0); O2 Tension (PaO2), arterial 128.3 mmHg (> 70.0); Potassium - ABG Lab 3.7 mmol/L (3.70-5.30); Puncture Site RBA
[2021-11-01] MEDS ORDERED: Carvedilol 25 MG TAB PO SCH (08:00)
[2021-11-01] MEDS: Heparin 5,000 UNITS/ML VIAL SC SCH ×2 (08:44→20:31)
[2021-11-01] MEDS: Piperacillin/Tazobactam 3.375 GM in Sodium Chloride 0.9% 100 ML IVPB SCH ×2 (08:45→20:30)
[2021-11-01] MEDS: Famotidine/PF 20 mg/2ml Vial SLOW IVP SCH (08:45)
[2021-11-01] MEDS: Lisinopril 20 MG TAB PO SCH (08:45)
[2021-11-01] MEDS ORDERED: NIFEdipine XL 60 MG TAB PO SCH (09:00)
[2021-11-01] MEDS: Insulin Regular 300 UNITS/3 ML VIAL SC PRN (12:26)
[2021-11-02] MEDS: hydrALAZINE 20 MG/ML VIAL SLOW IVP PRN ×4 (00:22→20:06)
[2021-11-02 03:56] LABS: #Basophils 0.1 10x3/uL (0.0-0.2); #Eosinphils 0.2 10x3/uL (0.0-0.5); #Monocytes 1.8 10x3/uL (0.0-1.1); #Neutrophils 10.4 10x3/uL (1.5-8.4); %Basophils 0.5 % (0.0-2.0); %Eosinophils 1.2 % (0.0-6.0); %Lymphocytes 4.4 % (18.0-47.0); %Monocytes 13.1 % (0.0-10.0); Hemoglobin 8.8 g/dL (12.0-15.5); Mean Corpuscular HGB CONC 33.6 g/dL (32.0-36.0); Mean Corpuscular Hemoglobin 31.2 pg (27.0-33.0); Mean Corpuscular Volume 92.9 fl (81.6-98.3); Mean Platelet Volume 9.7 fl (7.4-10.4); Platelet Count 201 10x3/uL (150-450); RBC Distribution Width 12.3 % (11.5-14.5); Red Blood Cell (RBC) Count 2.82 10x6/uL (3.90-5.03); White Blood Cell (WBC) Count 13.3 10x3/uL (3.5-10.5)
[2021-11-02 04:15] LABS: ALT (SGPT) 20 U/L (8-55); AST (SGOT) 44 U/L (5-34); Alkaline Phosphatase 86 U/L (40-110); Anion Gap 18 mmol/L (10-20); BUN (Urea Nitrogen) 38 mg/dL (9.8-20.1); Bilirubin, Total 0.3 mg/dL (0.2-1.2); Calc. Creatinine Clearance 9 mL/min (70-130); Calcium 10.4 mg/dL (7.8-10.44); Carbon Dioxide 27 mmol/L (23-31); Chloride 100 mmol/L (98-107); Globulin 3.5 g/dL (2.4-3.5); Glucose 163 mg/dL (83-110); Protein, Total 6.5 g/dL (5.8-8.1); Sodium 141 mmol/L (136-145)
[2021-11-02 07:41] VITALS: BMI 20.5
[2021-11-02] MEDS: Piperacillin/Tazobactam 3.375 GM in Sodium Chloride 0.9% 100 ML IVPB SCH ×2 (08:31→19:56)
[2021-11-02] MEDS: Lisinopril 20 MG TAB PO SCH (08:32)
[2021-11-02] MEDS: Famotidine/PF 20 mg/2ml Vial SLOW IVP SCH (08:32)
[2021-11-02] MEDS: Heparin 5,000 UNITS/ML VIAL SC SCH ×2 (08:32→20:06)
[2021-11-02] MEDS: Labetalol HCl 100 MG/20 ML VIAL SLOW IVP PRN ×2 (09:27→16:53)
[2021-11-02] MEDS: Morphine 2 MG/ML VIAL SLOW IVP PRN (09:31)
[2021-11-02 19:45] LABS: SARS-CoV-2 PCR by NAA Not Detected (NotDetected)
[2021-11-03] MEDS: hydrALAZINE 20 MG/ML VIAL SLOW IVP PRN (04:04)
[2021-11-03 04:16] LABS: ALT (SGPT) 18 U/L (8-55); AST (SGOT) 41 U/L (5-34); Albumin 2.9 g/dL (3.4-4.8); Alkaline Phosphatase 93 U/L (40-110); Anion Gap 22 mmol/L (10-20); BUN (Urea Nitrogen) 53 mg/dL (9.8-20.1); Bilirubin, Total 0.3 mg/dL (0.2-1.2); Calc. Creatinine Clearance 8 mL/min (70-130); Calcium 10.7 mg/dL (7.8-10.44); Carbon Dioxide 21 mmol/L (23-31); Chloride 101 mmol/L (98-107); Globulin 3.9 g/dL (2.4-3.5); Glucose 133 mg/dL (83-110); Potassium 5.2 mmol/L (3.5-5.1); Protein, Total 6.8 g/dL (5.8-8.1); Sodium 139 mmol/L (136-145)
[2021-11-03 04:29] LABS: Band 3 % (5-11); Eosinophils 3 % (0-10); Hemoglobin 9.6 g/dL (12.0-15.5); Lymphocytes 1 % (21-51); MDiff Complete? YES; Mean Corpuscular HGB CONC 34.3 g/dL (32.0-36.0); Mean Corpuscular Hemoglobin 31.2 pg (27.0-33.0); Mean Corpuscular Volume 90.9 fl (81.6-98.3); Mean Platelet Volume 10.6 fl (7.4-10.4); Monocytes 12 % (0-10); Neutrophil 81 % (42-75); Platelet Count 221 10x3/uL (150-450); Platelet Morphology Comment Appears Decreased; RBC Distribution Width 12.4 % (11.5-14.5); RBC Morphology Normal; Red Blood Cell (RBC) Count 3.08 10x6/uL (3.90-5.03); White Blood Cell (WBC) Count 18.5 10x3/uL (3.5-10.5)
[2021-11-03] MEDS: Heparin 5,000 UNITS/ML VIAL SC SCH ×2 (08:04→19:50)
[2021-11-03] MEDS: Piperacillin/Tazobactam 3.375 GM in Sodium Chloride 0.9% 100 ML IVPB SCH ×2 (08:04→19:56)
[2021-11-03] MEDS: Lisinopril 20 MG TAB PO SCH (08:04)
[2021-11-03] MEDS: Famotidine/PF 20 mg/2ml Vial SLOW IVP SCH (08:04)
[2021-11-03] MEDS: Morphine 2 MG/ML VIAL SLOW IVP PRN (19:50)
[2021-11-04] MEDS: Lorazepam 2 MG/ML VIAL SLOW IVP PRN ×3 (01:51→13:05)
[2021-11-04 04:50] VITALS: TEMP 97.3
[2021-11-04 06:29] LABS: ALT (SGPT) 14 U/L (8-55); AST (SGOT) 35 U/L (5-34); Albumin 2.8 g/dL (3.4-4.8); Alkaline Phosphatase 90 U/L (40-110); Anion Gap 22 mmol/L (10-20); BUN (Urea Nitrogen) 65 mg/dL (9.8-20.1); Bilirubin, Total 0.3 mg/dL (0.2-1.2); Calc. Creatinine Clearance 7 mL/min (70-130); Calcium 10.4 mg/dL (7.8-10.44); Carbon Dioxide 22 mmol/L (23-31); Chloride 101 mmol/L (98-107); Globulin 3.7 g/dL (2.4-3.5); Glucose 154 mg/dL (83-110); Potassium 5.1 mmol/L (3.5-5.1); Protein, Total 6.5 g/dL (5.8-8.1); Sodium 140 mmol/L (136-145)
[2021-11-04 06:48] LABS: Band 30 % (5-11); Hemoglobin 9.1 g/dL (12.0-15.5); Lymphocytes 2 % (21-51); MDiff Complete? YES; Mean Corpuscular HGB CONC 34.5 g/dL (32.0-36.0); Mean Corpuscular Hemoglobin 31.4 pg (27.0-33.0); Monocytes 9 % (0-10); Neutrophil 59 % (42-75); Platelet Count 229 10x3/uL (150-450); Platelet Morphology Comment Appears Adequate; RBC Distribution Width 12.5 % (11.5-14.5); RBC Morphology Normal; White Blood Cell (WBC) Count 30.9 10x3/uL (3.5-10.5)
[2021-11-04] MEDS: Piperacillin/Tazobactam 3.375 GM in Sodium Chloride 0.9% 100 ML IVPB SCH (08:07)
[2021-11-04] MEDS: Lisinopril 20 MG TAB PO SCH (08:07)
[2021-11-04] MEDS: Heparin 5,000 UNITS/ML VIAL SC SCH (08:07)
[2021-11-04] MEDS: Famotidine/PF 20 mg/2ml Vial SLOW IVP SCH (08:07)
[2021-11-04 10:31] VITALS: BP 152/65
[2021-11-04] MEDS: Morphine 4 MG/ML VIAL SLOW IVP PRN ×4 (12:22→13:32)
[2021-11-04] MEDS ORDERED: Lorazepam 2 MG/ML VIAL SLOW IVP PRN (13:30)
[2021-11-04] MEDS ORDERED: Morphine 4 MG/ML VIAL SLOW IVP PRN (13:30)
== END 2021-11-04 17:15 | disposition expired | DRG 291 ==
LOC: CSHERS 06:03 → CSHIMCU 09:13
PROVIDERS: ADMIT Emergency Medicine; ATTEND Internal Medicine
PROC: 0BH17EZ Insertion of Endotracheal Airway into Trachea, Via Natural or Artificial Opening (ICD-10-PCS; principal; 2021-10-27)
PROC: 5A1955Z Respiratory Ventilation, Greater than 96 Consecutive Hours (ICD-10-PCS; 2021-10-27)
PROC: 02HV33Z Insertion of Infusion Device into Superior Vena Cava, Percutaneous Approach (ICD-10-PCS; 2021-10-27)
PROC: B548ZZA Ultrasonography of Superior Vena Cava, Guidance (ICD-10-PCS; 2021-10-27)
PROC: 3E043XZ Introduction of Vasopressor into Central Vein, Percutaneous Approach (ICD-10-PCS; 2021-10-27)
PROC: 5A1D70Z Performance of Urinary Filtration, Intermittent, Less than 6 Hours Per Day (ICD-10-PCS; 2021-10-31)
DX: I13.2 Hypertensive heart and chronic kidney disease with heart failure and with stage 5 chronic kidney disease, or end stage renal disease (principal); N18.6 End stage renal disease; J96.01 Acute respiratory failure with hypoxia; J96.02 Acute respiratory failure with hypercapnia; I50.33 Acute on chronic diastolic (congestive) heart failure; G93.41 Metabolic encephalopathy; E87.2 Acidosis; E87.3 Alkalosis; G93.1 Anoxic brain damage, not elsewhere classified; I46.8 Cardiac arrest due to other underlying condition; Z20.822 Contact with and (suspected) exposure to COVID-19; E11.22 Type 2 diabetes mellitus with diabetic chronic kidney disease; Z66 Do not resuscitate; J44.9 Chronic obstructive pulmonary disease, unspecified; E88.09 Other disorders of plasma-protein metabolism, not elsewhere classified; R74.01 Elevation of levels of liver transaminase levels; E03.9 Hypothyroidism, unspecified; I25.10 Atherosclerotic heart disease of native coronary artery without angina pectoris; D63.1 Anemia in chronic kidney disease; M62.50 Muscle wasting and atrophy, not elsewhere classified, unspecified site; E87.5 Hyperkalemia; E78.5 Hyperlipidemia, unspecified; Z86.73 Personal history of transient ischemic attack (TIA), and cerebral infarction without residual deficits; Z88.8 Allergy status to other drugs, medicaments and biological substances; Z88.1 Allergy status to other antibiotic agents; Z88.2 Allergy status to sulfonamides; Z79.899 Other long term (current) drug therapy; Z79.890 Hormone replacement therapy; Z99.2 Dependence on renal dialysis; Z90.49 Acquired absence of other specified parts of digestive tract; Z90.710 Acquired absence of both cervix and uterus; Z82.49 Family history of ischemic heart disease and other diseases of the circulatory system; Z80.9 Family history of malignant neoplasm, unspecified; Z87.891 Personal history of nicotine dependence
CPT/HCPCS: 31500; 36415; 36416; 36600; 51702; 70450; 71045; 80053; 82550; 82553; 82805; 82947; 83605; 83735; 83880; 84100; 84484; 85007; 85025; 85027; 85610; 85730; 87040; 87324; 87449; 90935; 93005; 93306; 94002; 94003; 94760; 95816; 96365; 96366; 96375; G0257; J0360; J0610; J1644; J1815; J2060; J2270; J2543; J2704; J3490; P9047; S0028; U0002; U0003; U0005